=== PATIENT | male | born 1970 | race Caucasian/White ===

== ENCOUNTER 2024-10-27 18:06 | Emergency (ER) | payer OTHER, SELFPAY ==
[2024-10-27 18:10] VITALS: BP 156/99; PULSE 100; TEMP 36.9; O2SAT 95; BMI 35.0
[2024-10-27] MEDS: DIPHTH,PERTUSS(ACELL),TET VAC 0.5 ML SYRINGE IM (18:30)
--- NOTE | 2024-10-27 19:06 | ED.WOUNDLAC1 ---
HPI - Wound/Laceration General Chief Complaint: Wound/Laceration Stated Complaint: LACERATION BELOW R ELBOW Time Seen by Provider: 10/27/24 18:09 Source: patient Mode of arrival: walk-in Limitations: no limitations History of Present Illness HPI narrative: Patient presents to the ER with complaint of laceration on the right arm. He states he was using a saw to cut a tree down and it kicked back and hit his arm. He originally thought it was an abrasion but then noticed the laceration. Is approximately 7 cm laceration. It is just distal to the right elbow joint. He is not any gross deformity. He has good range of motion. He denies any numbness or tingling in the extremity. He did wrap it prior to coming in no other treatments were performed. Bleeding is currently controlled Place: Reports home Patient tetanus UTD: No Context: Reports accidental Associated symptoms: Reports pain; Denies unable to move injured part Treatments prior to arrival: Reports bandage Related Data Allergies Allergy/AdvReac Type Severity Reaction Status Date / Time No Known Drug Allergies Allergy Verified 10/27/24 18:10 PFSH PFSH Social History Little interest or pleasure in doing things: not at all Feeling down, depressed, or hopeless: not at all Exam Constitutional Vital Signs, click to edit/add: Last Vital Signs Temp 98.4 F 10/27/24 18:10 Pulse 100 H 10/27/24 18:10 Resp 18 10/27/24 18:10 BP 156/99 H 10/27/24 18:10 Pulse Ox 95 10/27/24 18:10 O2 Del Method Room Air 10/27/24 18:10 Documenting provider has reviewed patient's vital signs: yes Common normals: no apparent distress, average body habitus and oriented x3 Chest Common normals: inspection of chest normal Respiratory Common normals: normal respiratory effort and clear to auscultation bilaterally Cardio Common normals: regular rate, regular rhythm, no murmurs and peripheral pulses 2+ throughout Extremity General: normal exam except as noted Right upper extremity: lower arm Neuro Common normals: oriented x3, moves all extremities, no focal motor deficits and no sensory deficits noted Sensorium/orientation: awake, alert, oriented to person, oriented to place and oriented to time Deep tendon reflexes: Rt Triceps (C7): 2+, Lt Triceps (C7): 2+, Rt Biceps (C5, C6): 2+, Lt Biceps (C5, C6): 2+, Rt Brachioradialis (C6): 2+ and Lt Brachioradialis (C6): 2+ Course Vital Signs Vital signs: Vital Signs Temperature 98.4 F 10/27/24 18:10 Pulse Rate 100 H 10/27/24 18:10 Respiratory Rate 18 10/27/24 18:10 Blood Pressure 156/99 H 10/27/24 18:10 Pulse Oximetry 95 10/27/24 18:10 Oxygen Delivery Method Room Air 10/27/24 18:10 Temperature 98.4 F 10/27/24 18:10 Pulse Rate 100 H 10/27/24 18:10 Respiratory Rate 18 10/27/24 18:10 Blood Pressure 156/99 H 10/27/24 18:10 Pulse Oximetry 95 10/27/24 18:10 Oxygen Delivery Method Room Air 10/27/24 18:10 MDM - Wound/Laceration MDM Narrative Medical decision making narrative: Patient presents to the ER with complaint of laceration on the right arm. He states he was using a saw to cut a tree down and it kicked back and hit his arm. He originally thought it was an abrasion but then noticed the laceration. Is approximately 7 cm laceration. It is just distal to the right elbow joint. He is not any gross deformity. He has good range of motion. He denies any numbness or tingling in the extremity. He did wrap it prior to coming in no other treatments were performed. Bleeding is currently controlled Patient is alert and oriented no acute distress. Laceration no any obvious signs of tendon damage. He has good range of motion of flexion extension of the elbow pronation supination and wrist and finger movements on the right side. He does not have any bony tenderness. Good cap refill distally good pulses distally. Wound was anesthetized and cleaned liberally using normal saline. Please see procedure note for details. No laceration to the tendon was seen. Patient was given good wound care instructions. Patient's tetanus shot was updated. Due to the nature of the wound I was planning on x-raying the patient to ensure there was no bony involvement however patient declined despite the risk of a chip to the bone or the saw hitting part of the bone causing what could be considered an open fracture. Patient is here with his . I gave him good return to ED precautions In terms of infection and proper wound healing. He is to have the sutures out in 12 days. He return to the ED with any worsening or concerning symptoms. Patient understands all discharge instructions will follow-up as discussed. Differential Diagnosis Differential diagnosis: Likely laceration and abrasion Medical Records Attestation: I reviewed the patient's medical records. Discharge Plan Discharge Chief Complaint: Wound/Laceration Clinical Impression: Laceration Patient Disposition: Home, Self-Care Time of Disposition Decision: 19:11 Condition: Good Print Language: Albanian Instructions: Laceration (ED) Additional Instructions: Sutures out in 10-12 days. Return with any worse or concerning symptoms As discussed. proper wound care as discussed. Referrals: ENRIQUE MATA [Primary Care Provider, Family Practice] - 1 week Discharge Date/Time: 10/27/24 19:31 Procedures ED Laceration Laceration Laceration 1: Site: upper extremity Side (if applicable): right Size (cm): 7 Description: linear Depth: simple, single layer Anesthetic used: lidocaine 1% Anesthesia technique: local infiltration Amount (ml): 6 Pre-repair: wound explored and irrigated extensively Skin layer closed with: other (ETHILON) Size (cm): 3-0 Number of sutures: 9 Technique: simple, interrupted Subcutaneous layer closed with: Vicryl Size: 4-0 Number of sutures: 6 Technique: running
== END 2024-10-27 19:31 | disposition home or self-care (01) ==
PROVIDERS: Emergency Provider Emergency Medicine; PCP Family Medicine
DX: S41.111A Laceration without foreign body of right upper arm, initial encounter (principal); W29.3XXA Contact with powered garden and outdoor hand tools and machinery, initial encounter; Z23 Encounter for immunization
CPT/HCPCS: 12002; 99283